=== PATIENT | female | born 1980 | race African-American/Black ===

== ENCOUNTER 2019-09-21 14:27 | Emergency (ER) | payer OTHER ==
--- NOTE | 2019-09-21 14:39 | PDOC ---
Rapid Medical Evaluation Time Seen by Provider: 09/21/19 14:36 Medical Evaluation: Allergies Allergy/AdvReac Type Severity Reaction Status Date / Time No Known Allergies Allergy Verified 09/21/19 14:36 09/21/19 14:36 HPI: Neurologist told pt to come to ER because of back pain, Hx of bulging disc and spasm. No systemic, radicular symptoms no loss of bowel or bladder function PE: No gross deficits ORDERS: Nothing Discharge Disposition - Diagnosis Lower back pain - Referrals - Patient Instructions - Post Discharge Activity
[2019-09-21 14:41] VITALS: BP 131/77; PULSE 68; TEMP 98.1; BMI 22.6
--- NOTE | 2019-09-21 16:05 | PDOC ---
History of Present Illness - General Chief Complaint: Back Pain Stated Complaint: RT LOWER BACK PAIN Time Seen by Provider: 09/21/19 14:36 History Source: Patient - History of Present Illness Initial Comments: 09/21/19 16:45 Chief complaint: Back pain Patient is a 39-year-old female without any significant medical history who does have chronic back issues. She states that she noticed her lower back was bothering her. She usually takes gabapentin, she has been taking ibuprofen, took 2 doses of ibuprofen today and has a lighted cane patch on. Patient went to work and ended up having spasm which made her go to her knees. Patient has some pain to the right lower back, no numbness, no dysuria, no incontinence. Patient is ambulatory. Patient also denies pain to her legs GENERAL/CONSTITUTIONAL: No fever, weakness. dizziness HEAD, EYES, EARS, NOSE AND THROAT: No change in vision. No ear pain or discharge. No sore throat. CARDIOVASCULAR: No chest pain RESPIRATORY: No shortness of breath or cough GASTROINTESTINAL: No pain, nausea, vomiting, diarrhea or constipation GENITOURINARY: No dysuria MUSCULOSKELETAL: No neck, +back pain SKIN: No rash NEUROLOGIC: No headache, vertigo, loss of consciousness, or loss of sensation. GENERAL: The patient is awake, alert, and fully oriented, in no acute distress. HEAD: Normal with no signs of trauma. EYES: Pupils equal, round and reactive to light, sclera anicteric, conjunctiva clear. ENT: pharynx: no erythema, no exudate, uvula midline NECK: supple CHEST: clear, nontender, rr ABD: soft, nontender BACK: no spinal tenderness, + right SI tenderness, signs of injury EXTREMITIES: Normal range of motion, no edema. NEUROLOGICAL: Normal speech, normal gait. Cranial nerves II through XII grossly intact, no gross focal abnormalities SKIN: Warm, Dry 09/21/19 16:48 Past History - Past Medical History Allergies/Adverse Reactions: Allergies Allergy/AdvReac Type Severity Reaction Status Date / Time No Known Allergies Allergy Verified 09/21/19 14:36 Home Medications: Ambulatory Orders Oxycodone HCl/Acetaminophen [Percocet 5-325 mg Tablet] 1 tab PO Q4H PRN #20 tablet MDD 6 09/21/19 COPD: No Other medical history: bulging discs upper back, spasms/tension lower back - Psycho Social/Smoking Cessation Hx Smoking History: Never smoked Hx Alcohol Use: No Drug/Substance Use Hx: No *Physical Exam - Vital Signs Last Vital Signs Temp Pulse Resp BP Pulse Ox 98.1 F 68 16 131/77 100 09/21/19 14:38 09/21/19 14:38 09/21/19 14:38 09/21/19 14:38 09/21/19 14:38 Medical Decision Making - Medical Decision Making 09/21/19 16:47 39-year-old female with chronic back pain, exacerbation. Patient usually does not have this kind of problem with her lower back but she tried to go to work after taking Motrin and had a lot of problems. She had called her neurologist and she is on the waiting list to be seen for either today or tomorrow. Patient has no paresthesias, no incontinence, no pain going into her legs. Patient found to have right SI tenderness underneath where the lidocaine patches. Patient maxed out on NSAIDs right now. Discussed muscle relaxers versus narcotics. Given patient's level of pain although ambulatory with no red flags. Will give short course of Percocet until she sees her neurologist this week. We will also give a work note. Discussed issues, findings, results, applicable medications and treatments and follow-up. All these were understood and all questions were answered Discharge - Discharge Information Problems reviewed: Yes Clinical Impression/Diagnosis: Lower back pain Qualifiers: Chronicity: unspecified Back pain laterality: right Sciatica presence: without sciatica Qualified Code(s): M54.5 - Low back pain Condition: Stable Disposition: HOME - Admission No - Additional Discharge Information Prescriptions: Oxycodone HCl/Acetaminophen [Percocet 5-325 mg Tablet] 1 tab PO Q4H PRN #20 tablet MDD 6 PRN Reason: Back Pain Prescription Drug Monitoring Program (I-STOP) results: I-STOP not reviewed - Follow up/Referral Referrals: Eli Guerrero MD [Primary Care Provider] - - Patient Discharge Instructions Patient Printed Discharge Instructions: Low Back Pain Additional Instructions: No heavy lifting or bending Apply ice to the area 20 minutes every 2 hours for the next 2 days Continue taking Motrin 600 mg every 6 hours for pain. If still in pain he can also take Percocet one tablet every 4 - 6 hours. Return to the nearest ER if numbness, weakness, severe pain, problems with urinating or having bowel movements. Call orthopedist today for an appointment for further evaluation - Post Discharge Activity Work/Back to School Note: Back to Work
== END 2019-09-21 16:20 | disposition home or self-care (01) ==
LOC: JERFT 14:27
DX: M54.5 Low back pain (principal); G89.29 Other chronic pain
CPT/HCPCS: 99283-25